=== PATIENT | male | born 1945 | race Caucasian/White ===

== ENCOUNTER 2020-10-24 07:13 | Outpatient (CLI) | payer MEDICARE, SELFPAY ==
--- NOTE | ~2020-10-24 | NM_ITS ---
EXAMINATION: NM priyanka stress w perfusion DATE: 10/24/2020 11:38 INDICATION: Dyspnea on exertion. TECHNIQUE: Rest images were obtained following intravenous administration of 10 mCi Tc99m tetrofosmin (Myoview). The patient was infused intravenously with Lexiscan (regadenoson). Then, 31.77 mCi Tc99m tetrofosmin (Myoview) was administered intravenously, and stress images were obtained. Data was recon structed into short axis and horizontal and vertical long axis SPECT images. Gated SPECT images were also obtained. COMPARISON: None. FINDINGS: There is no definite reversible or fixed perfusion abnormality to suggest ischemia or infar ction. There is no segmental wall motion abnormality. Left ventricular ejection fraction measures 5 3%. IMPRESSION: 1. No definite ischemia or infarct. 2. Normal left ventricular ejection fraction measuring 53%. Reviewed, dictated and finalized at location B.
--- NOTE | 2020-10-24 07:36 | ECHO_ITS ---
Patient Info Name: Mart Hobbs Age: 75 years : 1945 Gender: Male Ht: 71 in Wt: 240 lbs BSA: 2.37 m2 HR: 65 bpm BP: 177 / 70 mmHg Technical Quality: Fair Exam Date: 10/24/2020 8:03 AM Exam Location: [facility] Patient Status: Outpatient Admit Date: 10/24/2020 Staff Ordering Physician: Otilio Maldonado DO Fast Brim Pouncer: James Flores RDCS, RT Attending Provider: Otilio Maldonado DO Referring Physician: Joel ARIAS; Exam Type: CA echo dop color flow w con Study Info Indications R06.00 - Dyspnea, unspecified Complete two-dimensional, color flow and Doppler transthoracic echocardiogram is performed with contrast to opacify the left ventricle and to improve the deliniation of the left ventricle endocardial borders. Summary 1. Left ventricular chamber dimension is normal. 2. Definity contrast administered improved wall motion interpretation. Patient had a reaction with definity with back pain that resolved with IV flush. 3. Left ventricular systolic function is normal, estimated at 65-70%. 4. There is mildly increased left ventricular wall thickness. 5. The left ventricular diastolic function is abnormal. 6. E/e' 17 is elevated. 7. Left atrial chamber dimension is mildly enlarged. 8. There is moderate aortic valve sclerosis. 9. There is mild aortic valve regurgitation. 10. The mitral valve has moderately calcified annulus. Left Ventricle E/e' 17 is elevated. Definity contrast administered improved wall motion interpretation. Patient had a reaction with definity with back pain that resolved with IV flush. Left ventricular chamber dimension is normal. Left ventricular systolic function is normal, estimated at 65-70%. There is mildly increased left ventricular wall thickness. The left ventricular diastolic function is abnormal. Right Ventricle Right ventricular systolic function is normal with normal TAPSE 2.7 cm. Right ventricular chamber dimension is normal. Left Atria Left atrial chamber dimension is mildly enlarged. Right Atria Right atrial chamber dimension is normal. Aortic Valve The aortic valve is trileaflet. There is moderate aortic valve sclerosis. There is no aortic valve stenosis. There is mild aortic valve regurgitation. Pulmonic Valve There is no pulmonic regurgitation. Mitral Valve The mitral valve has moderately calcified annulus. There is no mitral valve stenosis. There is no mitral valve regurgitation. Tricuspid Valve There is no tricuspid valve regurgitation. Pericardium/Pleural There is no pericardial effusion. Inferior Vena Cava Inferior vena cava is not well visualized. Aorta The aortic root size at the sinus of Valsalva is normal. Left Ventricular Outflow Tract Name Value Normal LVOT 2D LVOT Diameter 2.05 cm LVOT Doppler LVOT Peak Gradient 3 mmHg LVOT Mean Gradient 2 mmHg LVOT VTI 32.02 cm LVOT VTI/AV VTI Ratio 0.71 LVOT Stroke Volume 105.62 ml LVOT CO 2.95 l/min
--- NOTE | 2020-10-24 08:11 | EST_ITS ---
Patient Info Name: Mart Hobbs Age: 75 years : 1945 Gender: Male Ht: 71 in Wt: 240 lbs BSA: 2.37 m2 HR: 62 bpm BP: 152 / 74 mmHg Heart Rhythm: Sinus Rhythm Exam Date: 10/24/2020 10:14 AM Patient Status: Outpatient Admit Date: 10/24/2020 Staff Ordering Physician: Otilio Maldonado DO Attending Provider: Otilio Maldonado DO Exercise Technologist: Lynsey Riggins CT Exercise Physician: Otilio Maldonado DO Exam Type: CA Lexiscan stress test w NM Study Info A regadenoson stress test was performed. Summary 1. 1. Negative lexiscan stress test for ischemic ST changes by ECG criteria. 2. 2. Baseline hypertension. 3. 3. Nuclear scan to follow and will be reported separately. Please correlate with it. 4. 4. Patient informed of the above results. Protocol: Lexiscan Stress ECG Details Stage: REST Duration (min): 1 min : 14 sec HR (bpm): 60 SBP (mmHg): 152 DBP (mmHg): 74 Stage: REST Duration (min): 7 min : 34 sec HR (bpm): 65 SBP (mmHg): 152 DBP (mmHg): 74 Stage: STAGE 1 Duration (min): 1 min : 0 sec HR (bpm): 78 SBP (mmHg): 152 DBP (mmHg): 74 Stage: RECOVERY Duration (min): 1 min : 0 sec HR (bpm): 75 SBP (mmHg): 202 DBP (mmHg): 73 Stage: RECOVERY Duration (min): 2 min : 0 sec HR (bpm): 75 SBP (mmHg): 202 DBP (mmHg): 73 Stage: RECOVERY Duration (min): 3 min : 0 sec HR (bpm): 73 SBP (mmHg): 167 DBP (mmHg): 74 Stage: RECOVERY Duration (min): 3 min : 6 sec HR (bpm): 75 SBP (mmHg): 167 DBP (mmHg): 74 Rest HR: 65 bpm Peak HR: 81 bpm Rest Sys BP: 152 mmHg Peak Sys BP: 202 mmHg Max Pred HR: 143 bpm % Max Pred HR: 57 % Target HR: 122 bpm Max RPP: 16,362 bpm*mmHg Termination Reason: Completed protocol Cardiac Symptoms: Shortness of breath Total Time: 1 min : 0 sec Rest Hernandez BP: 74 mmHg Peak Hernandez BP: 73 mmHg Total Dose: 0.4 mg Resting ECG Sinus rhythm, frequent PAC's, LVH with ST-T change, LAFB. Stress ECG No ST changes. Arrhythmias None. Report Signatures
--- NOTE | 2020-10-24 09:30 | PCCARD ---
Pt had a reaction to Definity. Back pain. Pt's IV was flushed and the back pain subsided in about 10 min. Andreas
== END 2020-10-24 07:14 | disposition home or self-care (01) ==
PROVIDERS: PCP Pediatrics; Visit Provider Internal Medicine Cardiovascular Disease
DX: R06.00 Dyspnea, unspecified (principal); R93.1 Abnormal findings on diagnostic imaging of heart and coronary circulation; I08.0 Rheumatic disorders of both mitral and aortic valves
CPT/HCPCS: 78452; 93017; A9502; C8929; J2785

== ENCOUNTER 2023-09-24 09:14 | Outpatient (CLI) | payer MEDICARE, SELFPAY ==
--- NOTE | 2023-09-24 09:38 | ECHO_ITS ---
Patient Info Name: Mart Hobbs Age: 78 years : 1945 Gender: Male Ht: 72 in Wt: 250 lbs BSA: 2.44 m2 HR: 78 bpm BP: 171 / 78 mmHg Heart Rhythm: Sinus Rhythm Technical Quality: Poor Exam Date: 09/24/2023 9:53 AM Exam Location: [facility] Patient Status: Outpatient Admit Date: 09/24/2023 Any Known Allergies: dye Staff Ordering Physician: Otilio Maldonado DO Medical Claims Analyst: Randell Juarez RDCS Attending Provider: Otilio Maldonado DO Referring Physician: Joel ARIAS; Exam Type: CA echo doppler color flow Study Info Indications - dyspnea Complete two-dimensional, color flow and Doppler transthoracic echocardiogram is performed. Summary 1. Complete two-dimensional, color flow and Doppler transthoracic echocardiogram is performed. 2. Left ventricular chamber dimension is moderately enlarged. 3. Left ventricular systolic function is normal, estimated at 55-60%. 4. The left ventricular diastolic function is abnormal. 5. E/e' 15 is elevated. 6. There is moderate aortic valve sclerosis. 7. There is mild aortic valve stenosis with a peak velocity of 202 cm/s, mean gradient of 10 mmHg. 8. The mitral valve has moderately calcified annulus. 9. No pulmonary hypertension, estimated pulmonary arterial systolic pressure is 12 mmHg. Left Ventricle E/e' 15 is elevated. Left ventricular chamber dimension is moderately enlarged. Left ventricular systolic function is normal, estimated at 55-60%. The left ventricular diastolic function is abnormal. Right Ventricle Right ventricular systolic function is normal and with normal TAPSE 2.5 cm. Right ventricular chamber dimension is normal. Left Atria Left atrial chamber dimension is normal. Right Atria Right atrial chamber dimension is normal. Aortic Valve There is mild aortic valve stenosis with a peak velocity of 202 cm/s, mean gradient of 10 mmHg. The aortic valve is trileaflet. There is moderate aortic valve sclerosis. There is no aortic valve regurgitation. Pulmonic Valve There is no pulmonic regurgitation. Mitral Valve The mitral valve has moderately calcified annulus. There is no mitral valve stenosis. There is no mitral valve regurgitation. Tricuspid Valve There is no tricuspid valve regurgitation. No pulmonary hypertension, estimated pulmonary arterial systolic pressure is 12 mmHg. Pericardium/Pleural There is no pericardial effusion. Inferior Vena Cava Normal inferior vena cava with >50% collapse upon inspiration consistent with normal right atrial pressure, 5 mmHg. Aorta The aortic root size at the sinus of Valsalva is normal. Left Ventricular Outflow Tract Name Value Normal LVOT 2D LVOT Diameter 2.0 cm LVOT Doppler LVOT Peak Gradient 11 mmHg LVOT Mean Gradient 7 mmHg LVOT VTI 44 cm LVOT VTI/AV VTI Ratio 0.9 LVOT Stroke Volume 142 ml LVOT CO 7.3 l/min LVOT CI 3.0 l/min/m2 Pulmonic Valve Name Value No
== END 2023-09-24 09:15 | disposition home or self-care (01) ==
LOC: ANHCARD 09:15
PROVIDERS: PCP Pediatrics; Visit Provider Internal Medicine Cardiovascular Disease
DX: I35.8 Other nonrheumatic aortic valve disorders (principal); I35.0 Nonrheumatic aortic (valve) stenosis; I34.81 Nonrheumatic mitral (valve) annulus calcification; I51.7 Cardiomegaly; I51.89 Other ill-defined heart diseases
CPT/HCPCS: 93306

== ENCOUNTER 2024-02-16 10:34 | Emergency (ER) | payer MEDICARE, SELFPAY ==
[2024-02-16 11:11] VITALS: BP 174/58; PULSE 64; RESP 20; TEMP 36.5; O2SAT 97
[2024-02-16 11:40] VITALS: BP 167/61; BP 186/58
--- NOTE | 2024-02-16 11:44 | ED.GENADULT ---
HPI - General Adult General Chief complaint: Ear Stated complaint: Ears/can't hear Time Seen by Provider: 02/16/24 11:44 Source: patient, RN notes reviewed and old records reviewed Mode of arrival: ambulatory Limitations: no limitations History of Present Illness HPI narrative: 78-year-old male with complaint of bilateral hearing decrease for 1 week. Patient reports history of impacted cerumen that required removal. Patient states he purchased an [id number] irrigation kit and has used at home without success. Patient denies pain, recent illness. patient resting comfortably in exam room in no acute distress. Related Data Home Medications ?Medication ?Instructions ?Recorded ?Confirmed ?Last Taken ?Type aspirin 81 mg chewable tablet 81 mg PO DAILY 10/05/19 02/16/24 Unknown History canagliflozin 300 mg tablet 300 mg PO DAILY 10/05/19 02/16/24 Unknown History (Invokana) colesevelam 625 mg tablet 3,750 mg PO DAILY 10/05/19 02/16/24 Unknown History esomeprazole magnesium 20 mg 20 mg PO DAILY 10/05/19 02/16/24 Unknown History capsule,delayed release ezetimibe 10 mg tablet 10 mg PO DAILY 10/05/19 02/16/24 Unknown History folic acid 1 mg tablet 1 mg PO DAILY 10/05/19 02/16/24 Unknown History gemfibrozil 600 mg tablet 600 mg PO DAILY 10/05/19 02/16/24 Unknown History levothyroxine 75 mcg capsule 75 mcg PO DAILY 10/05/19 02/16/24 Unknown History multivitamin (Daily Multi-Vitamin 1 tablet PO DAILY 10/05/19 02/16/24 Unknown History tablet) sitagliptin phos 100 mg-metformin 1 tablet PO DAILY 10/05/19 02/16/24 Unknown History ER 1,000 mg tablet,extend rel 24h mp (Janumet XR) lactobacillus combination no.9 4 4,000 mmu cells PO DAILY 02/22/20 02/16/24 Unknown History billion cell capsule (Adult 50 Plus Probiotic) pitavastatin calcium 2 mg tablet 2 mg PO DAILY 09/20/20 02/16/24 Unknown History (Livalo) irbesartan 300 mg tablet 300 mg PO DAILY 11/02/20 02/16/24 Unknown History furosemide 40 mg tablet 40 mg PO QAM 12/12/21 02/16/24 Unknown History colestipol 1 gram tablet g PO 09/01/23 09/01/23 Unknown History empagliflozin 10 mg tablet 10 mg PO DAILY 09/01/23 02/16/24 Unknown History (Jardiance) Allergies Allergy/AdvReac Type Severity Reaction Status Date / Time erythromycin base AdvReac Severe Hives and Verified 02/16/24 11:23 rash levofloxacin (From Levaquin) AdvReac Severe Anaphylaxis Verified 02/16/24 11:23 sulfamethoxazole (From AdvReac Severe Swelling Verified 02/16/24 11:23 Sulfamethoxazole-Trimethoprim) trimethoprim (From AdvReac Severe Swelling Verified 02/16/24 11:23 Sulfamethoxazole-Trimethoprim) atorvastatin AdvReac Intermediate myalgias Verified 02/16/24 11:23 rosuvastatin AdvReac Intermediate myalgias Verified 02/16/24 11:23 astemizole AdvReac Unknown Unknown Verified 02/16/24 11:23 doxycycline AdvReac Unknown Unknown Verified 02/16/24 11:23 hydrochlorothiazide AdvReac Unknown Unknown Verified 02/16/24 11:23 lisinopril AdvReac Unknown Unknown Verified 02/16/24 11:23 Penicillins AdvReac Unknown hives and Verified 02/16/24 11:23 rash tamsulosin AdvReac Unknown hives and Verified 02/16/24 11:23 rash terazosin AdvReac Unknown Unknown Verified 02/16/24 11:23 Review of Systems Review of Systems: All systems reviewed & are unremarkable except as noted in HPI and below Constitutional: Constitutional: Reports no additional constitutional complaints Eyes: Eyes: Reports no additional eye complaints ENT: Reports as per HPI and Reports hearing loss ( Bilateral) Cardiovascular: Cardiovascular: Reports no additional cardiovascular complaints, Denies chest pain and Denies dyspnea Respiratory: Respiratory: Reports no additional respiratory complaints, Denies cough and Denies dyspnea Musculoskeletal: Musculoskeletal: Reports no additional musculoskeletal complaints Neurologic: Reports system reviewed and no additional complaints, except as documented Psychiatric: Psychiatric: Reports no additional psychiatric complaints COUNT INCLUDES THE [facility] Past Medical History Medical History Stroke Hypertension Diabetes mellitus Broken bones Surgical History Surgical History Hx of appendectomy Social History Social History Smoking packs per day: 1 Smoking cigarettes per day: 20.0 Years smoked: 20 Smoking pack-years: 20.00 Smoking status: Former smoker Alcohol intake: current Alcohol use details: socially Comments At the time of my signature, I reviewed and agree with the nursing past medical, surgical, social, and family history. There is no relevant family history pertinent to the patient complaint. Exam Const: General: cooperative, healthy appearing, comfortable, no acute distress, alert and well nourished Nutritional Appearance: well nourished Orientation/consciousness: patient oriented x3 Limitations: no limitations HENMT: Head: normal to inspection Ears: external ears normal and Abnormal EAC present cerumen impaction bilateral Face/Nose/Sinus: Normal external nose present, Normal nares present, normal facial exam, No erythema and No edema Face and sinus: normal facial exam, no erythema and no edema Mouth: Yes Normal oral and palatal mucosa present Eyes: General: appearance normal, both eyes and all related structures Neck: Neck: normal visual inspection, full ROM and no meningeal signs Chest: Chest palpation & inspection: normal inspection of the chest Resp: Effort & Inspection: normal respiratory effort and able to speak in complete sentences Cardio: Jugular venous distension: no JVD Rate: regular rate Rhythm: regular rhythm Back/Spine/Pelvis: Cervical Spine: cervical ROM normal Skin: General skin exam: normal color, no rashes or lesions noted and turgor normal Neuro: General: patient oriented x3, gait normal, moves all extremities and no meningeal signs Speech: normal speech Gait exam (Neuro): Normal gait present Extrem: General: normal to inspection, full ROM and capillary refill normal Psych: Appearance: grossly normal and well kempt Course Course Emergency Course: Some parts of this dictation were generated by voice recognition software and may contain typographical and/or grammatical inaccuracies. Level of Care: Express Care Visit Vital Signs Vital signs: Vital Signs Temperature 36.5 C 02/16/24 11:11 Pulse Rate 64 02/16/24 11:11 Respiratory Rate 20 02/16/24 11:11 Blood Pressure 174/58 H 02/16/24 11:11 Pulse Oximetry 97 02/16/24 11:11 Oxygen Delivery Room Air 02/16/24 11:11 Temperature 36.5 C 02/16/24 11:11 Pulse Rate 64 02/16/24 11:11 Respiratory Rate 20 02/16/24 11:11 Blood Pressure 167/61 H 02/16/24 11:40 Pulse Oximetry 97 02/16/24 11:11 Oxygen Delivery Room Air 02/16/24 11:11 reviewed Procedures Ear Wax Removal Both Ears: Ear Wax Removal Date: 02/16/24 Results: Re-examined: cerumen removed completely TM Examination: TM(s) intact, normal appearance Ear Canal Exam: atraumatic Patient Tolerated Procedure: well and no complications Complications: no problems Technique: ear canal irrigated and ear canal curetted Medical Decision Making MDM Narrative Medical decision making narrative: 78-year-old male with complaint of bilateral hearing decrease And dizziness for 1 week. Patient reports history of impacted cerumen that required removal. Patient states he purchased an [id number] irrigation kit and has used at home without success. Patient denies pain, recent illness. patient resting comfortably in exam room in no acute distress. Patient is sitting comfortably in exam room nontoxic in appearance. on exam, bilateral cerumen impaction. Complete removal successful with irrigation and lighted curette. Patient tolerated well. Patient appropriate for outpatient treatment and follow-up. Discharge instructions reviewed with patient, as well as provided in writing per nursing staff. The instructions also include specific and strict return/GO TO THE ER as well as f/u information. All questions have been answered, and the patient deny any further questions with discharge and discharge plan. Some parts of this dictation were generated by voice recognition software and may contain typographical and/or grammatical inaccuracies. Differential Diagnosis Differential Diagnosis: Cerumen impaction, foreign body ear, ruptured tympanic membrane, otitis media, otitis externa Vital Signs Vital Signs: Vital Signs Temperature 36.5 C 02/16/24 11:11 Pulse Rate 64 02/16/24 11:11 Respiratory Rate 20 02/16/24 11:11 Blood Pressure 174/58 H 02/16/24 11:11 Pulse Oximetry 97 02/16/24 11:11 Oxygen Delivery Room Air 02/16/24 11:11 Temperature 36.5 C 02/16/24 11:11 Pulse Rate 64 02/16/24 11:11 Respiratory Rate 20 02/16/24 11:11 Blood Pressure 167/61 H 02/16/24 11:40 Pulse Oximetry 97 02/16/24 11:11 Oxygen Delivery Room Air 02/16/24 11:11 Discharge Plan Discharge Clinical Impression: Bilateral impacted cerumen Patient Disposition: Home, Self-Care Condition: Stable Additional Instructions: please use prescription ear drops in both ears as prescribed for new or worsening symptoms please go directly to the emergency department Patient Language: Romanian Prescriptions: New hydrocortisone-acetic acid 1-2 % drops 4 drp EACH EAR TID 10 Days Qty: 10 0RF No Action irbesartan 300 mg tablet 300 mg PO DAILY furosemide 40 mg tablet 40 mg PO QAM colesevelam 625 mg tablet 3,750 mg PO DAILY aspirin 81 mg tablet,chewable 81 mg PO DAILY esomeprazole magnesium 20 mg capsule,delayed release(DR/EC) 20 mg PO DAILY ezetimibe 10 mg tablet 10 mg PO DAILY folic acid 1 mg tablet 1 mg PO DAILY gemfibrozil 600 mg tablet 600 mg PO DAILY Invokana 300 mg tablet 300 mg PO DAILY Janumet XR 100-1,000 mg tablet, ER multiphase 24 hr 1 tablet PO DAILY levothyroxine 75 mcg capsule 75 mcg PO DAILY multivitamin [Daily Multi-Vitamin] Tablet 1 tablet PO DAILY Adult 50 Plus Probiotic 4 billion cell capsule 4,000 mmu cells PO DAILY Rx Instructions: administer with a meal Livalo 2 mg tablet 2 mg PO DAILY Patient Comments: He takes it twice a week Jardiance 10 mg tablet 10 mg PO DAILY colestipol 1 gram tablet PO amlodipine 5 mg tablet See Rx Instructions .ROUTE .COMPLEX Qty: 90 2RF Dose Instruction: TAKE 1 TABLET BY MOUTH DAILY Rx Instructions: TAKE 1 TABLET BY MOUTH DAILY Follow-up/Referrals: Vero,MD Cuauhtemoc [Primary Care Provider] -
== END 2024-02-16 12:18 | disposition home or self-care (01) ==
PROVIDERS: Emergency Provider Nurse Practitioner Family; PCP Hospitalist
DX: H61.23 Impacted cerumen, bilateral (principal); I10 Essential (primary) hypertension; E11.9 Type 2 diabetes mellitus without complications; Z86.73 Personal history of transient ischemic attack (TIA), and cerebral infarction without residual deficits; Z87.891 Personal history of nicotine dependence; Z79.82 Long term (current) use of aspirin
CPT/HCPCS: 69210; 99213; G0463